=== PATIENT | female | born 1955 | race Caucasian/White ===

== ENCOUNTER → 2016-05-27 | Outpatient (CLI) | payer BC, OTHER ==
[2016-06-06 16:04] LABS: HPV 16 Not Detected (NOTDET); HPV 18 Not Detected (NOTDET)
== END | disposition home or self-care (01) ==
LOC: MW.CHOBGYN 08:41
PROVIDERS: ATTEND Nurse Practitioner Women's Health
DX: Z12.4 Encounter for screening for malignant neoplasm of cervix (principal)
CPT/HCPCS: 87624; G0145

== ENCOUNTER → 2016-05-29 | Outpatient (CLI) | payer BC, OTHER ==
[~2016-05-29] MED LIST: Albuterol 0.083% 2.5 MG/3 ML Neb Soln NEB ONE
== END | disposition home or self-care (01) ==
LOC: MW.RT 08:13
PROVIDERS: ATTEND Internal Medicine
DX: F17.210 Nicotine dependence, cigarettes, uncomplicated (principal)
CPT/HCPCS: 94060; 94729

== ENCOUNTER 2016-06-27 23:10 | Emergency (ER) | payer BC, OTHER ==
[2016-06-27] MEDS ORDERED: Lidocaine 1% 20 ML MDV ONE ×2 (23:22→23:26)
--- NOTE | 2016-06-27 23:25 | EDM.PDOC ---
ED HPI GENERAL MEDICAL PROBLEM - General Chief Complaint: Laceration Stated Complaint: CUT ON RIGHT FOOD Time Seen by Provider: 06/27/16 23:20 - History of Present Illness INITIAL COMMENTS - FREE TEXT/NARRATIVE: HISTORY AND PHYSICAL: History of present illness: Patient's 60-year-old female she concern of acute injury to her left foot that occurred when she sustained a laceration on a storm door prior to arrival patient denies other trauma concern tetanus status to be determined Review of systems: As per history of present illness and below otherwise all systems reviewed and negative. Past medical history: As per history of present illness and as reviewed below otherwise noncontributory. Surgical history: As per history of present illness and as reviewed below otherwise noncontributory. Social history: No reported history of drug or alcohol abuse. Family history: As per history of present illness and as reviewed below otherwise noncontributory. Physical exam: HEENT: Atraumatic, normocephalic, pupils reactive, negative for conjunctival pallor or scleral icterus, mucous membranes moist, throat clear, neck supple, nontender, trachea midline. Lungs: Clear to auscultation, breath sounds equal bilaterally, chest nontender. Heart: S1S2, regular, negative for clicks, rubs, or JVD. Abdomen: Soft, nondistended, nontender. Negative for masses or hepatosplenomegaly. Negative for costovertebral tenderness. Pelvis: Stable nontender. Genitourinary: Deferred. Rectal: Deferred. Extremities: Patient has approximately 4 cm regular laceration on the medial aspect near her Achilles is no tendon involvement good hemostasis CMS neurovascular unremarkable Neuro: Awake, alert, oriented. Cranial nerves II through XII unremarkable. Cerebellum unremarkable. Motor and sensory unremarkable throughout. Exam nonfocal. Diagnostics: None Therapeutics: Patient was anesthetized 1% lidocaine prepped and draped in a sterile manner and sutured with 4-0 interrupted nylon suture bacitracin was applied Impression: #1 laceration left foot Definitive disposition and diagnosis as appropriate pending reevaluation and review of above. Left Feet Pain Score (Numeric/FACES): 5 - Related Data Allergies Allergy/AdvReac Type Severity Reaction Status Date / Time adhesive Allergy Hives Verified 12/05/13 21:35 codeine Allergy Hives Verified 12/05/13 21:35 Sulfa (Sulfonamide Allergy Hives Verified 12/05/13 21:35 Antibiotics) Home Meds: Home Meds Aspirin [Venango Aspirin] 243 mg 12/05/13 [History] Fexofenadine/Pseudoephedrine [Ghazala-D 12 Hour Tablet] 1 tab PO BID 12/05/13 [ History] Ranitidine [Zantac] 12/05/13 [History] ED ROS GENERAL - Review of Systems Review Of Systems: ROS reveals no pertinent complaints other than HPI. ED EXAM, SKIN/RASH Exam: See Below (See dictation) Course - Vital Signs Last Recorded V/S: Last Vital Signs Temp 36.5 C 06/27/16 23:19 Pulse 103 H 06/27/16 23:19 Resp 18 06/27/16 23:19 BP 131/57 L 06/27/16 23:19 Pulse Ox 94 L 06/27/16 23:19 Departure - Departure Time of Disposition: 23:24 Disposition: Home, Self-Care 01 Condition: good Clinical Impression: Laceration - Discharge Information Referrals: Toro Frias MD [Primary Care Provider] - Forms: ED Department Discharge Additional Instructions: The following information is given to patients seen in the emergency department who are being discharged to home. This information is to outline your options for follow-up care. We provide all patients seen in our emergency department with a follow-up referral. The need for follow-up, as well as the timing and circumstances, are variable depending upon the specifics of your emergency department visit. If you don't have a primary care physician on staff, we will provide you with a referral. We always advise you to contact your personal physician following an emergency department visit to inform them of the circumstance of the visit and for follow-up with them and/or the need for any referrals to a consulting specialist. The emergency department will also refer you to a specialist when appropriate. This referral assures that you have the opportunity for followup care with a specialist. All of these measure are taken in an effort to provide you with optimal care, which includes your followup. Under all circumstances we always encourage you to contact your private physician who remains a resource for coordinating your care. When calling for followup care, please make the office aware that this follow-up is from your recent emergency room visit. If for any reason you are refused follow-up, please contact the emergency department at and asked to speak to the emergency department charge nurse. Wound care as directed follow up primary medical doctor one to 2 days suture removal 10-14 days return as needed as discussed
[2016-06-27] MEDS ORDERED: Bacitracin Oint 1 GM U/D Packet TOP ONE (23:34)
[2016-06-27] MEDS ORDERED: Diphtheria,Pertussis(Acell),Tetanus Vaccine 0.5 ML Syringe IM ONE (23:34)
[2016-06-27 23:56] VITALS: BP 138/67
== END 2016-06-27 23:50 | disposition home or self-care (01) ==
LOC: MW.ED 23:10
DX: S91.312A Laceration without foreign body, left foot, initial encounter (principal); Z88.2 Allergy status to sulfonamides; Z23 Encounter for immunization; W26.8XXA Contact with other sharp object(s), not elsewhere classified, initial encounter; Z88.6 Allergy status to analgesic agent; Z91.09 Other allergy status, other than to drugs and biological substances; Z79.82 Long term (current) use of aspirin
CPT/HCPCS: 12002; 90715; 96372; 99282; 99282-25